=== PATIENT | male | born 1945 | race Caucasian/White ===

== ENCOUNTER 2017-03-05 09:07 | Day surgery (SDC) | payer MEDICARE, OTHER ==
[~2017-03-05 09:07] MED LIST: RINGERS SOLUTION,LACTATED 1,000 ML IV PRN
--- OUTSIDE RECORDS SUMMARY | 2017-03-05 09:14 | XMS REPORT | CCD ---
:1945 Author Name MOON MANDEL Address [address] [facility] Unavailable [place], [place] [id number] Care Team Providers Name Role Phone DASIA SCHNEIDER Attending Physician Unavailable Vital Signs Vital Sign Value Unit Date/Time Recent/Initial? Weight Measured 212 lbs 05/21/2016 08:49 Initial VS Height 70 in 05/21/2016 08:49 Initial VS BMI (Body Mass Index) 30.42 kg/m^2 05/21/2016 08:49 Initial VS BSA (Body Surface Area) 2.18 m^2 05/21/2016 08:49 Initial VS Allergies Allergy Code Allergy Type Reaction Status DILAUDID 054828 Drug allergy RASH Active Procedures Procedure Code Procedure Type Date Replacement of Left Lens with Synthetic Substitute, [id number] ICD-10 PCS 05/21 Percutaneous Approach History of Immunizations Unknown or Not Available. Problems Unknown or Not Available. Results Unknown or Not Available. Active Medications Unknown or Not Available. Medications Administered During Visit Unknown or Not Available. Encounters Encounter Diagnosis Diagnosis Code Start Date Age-related nuclear cataract, bilateral H2513 05/21/2016 Social History Smoking Status Code Start Date End Date Unknown if ever smoked [id number] Patient Decision Aids Unknown or Not Available. Discharge Instructions You were admitted to [facility] on 05/21/2016 08:15 with a principal diagnosis of Age-related nuclear cataract, bilateral You had the following procedures done:Replacement of Left Lens with Synthetic Substitute, Percutaneous Approach You were discharged from [facility] on 05/21/2016 11:00 Should you have any questions prior to discharge, please contact a member of your healthcare team. If you have left the hospital and have any questions, please contact your primary care physician. Chief Complaint and Reason For Visit Unknown or Not Available. Function Status Unknown or Not Available. Plan of Care Unknown or Not Available. Referral/Transition of Care Unknown or Not Available.
--- OUTSIDE RECORDS SUMMARY | 2017-03-05 09:14 | XMS REPORT | CCD ---
:1945 Author Name MOON MANDLE Address [address] [facility] Unavailable [place], [place] [id number] Care Team Providers Name Role Phone DASIA SCHNEIDER Attending Physician Unavailable Vital Signs Vital Sign Value Unit Date/Time Recent/Initial? Weight Measured 211.63 lbs 05/21/2016 14:37 Initial VS Height 70 in 05/21/2016 14:37 Initial VS BMI (Body Mass Index) 30.37 kg/m^2 05/21/2016 14:37 Initial VS BSA (Body Surface Area) 2.18 m^2 05/21/2016 14:37 Initial VS Allergies Allergy Code Allergy Type Reaction Status DILAUDID 380148 Drug allergy RASH Active Procedures Procedure Code Procedure Type Date Replacement of Right Lens with Synthetic [id number] ICD-10 PCS 05/28/2016 Substitute, Percutaneous Approach History of Immunizations Unknown or Not Available. Problems Unknown or Not Available. Results Unknown or Not Available. Active Medications Unknown or Not Available. Medications Administered During Visit Unknown or Not Available. Encounters Encounter Diagnosis Diagnosis Code Start Date Age-related nuclear cataract, right eye H2511 05/28/2016 Social History Smoking Status Code Start Date End Date Never smoker [id number] Patient Decision Aids Unknown or Not Available. Discharge Instructions You were admitted to [facility] on 05/28/2016 07:04 with a principal diagnosis of Age-related nuclear cataract, right eye You had the following procedures done:Replacement of Right Lens with Synthetic Substitute, Percutaneous Approach You were discharged from [facility] on 05/28/2016 10:07 Should you have any questions prior to [...]
--- OUTSIDE RECORDS SUMMARY | 2017-03-05 09:14 | XMS REPORT | Continuity of Care Document ---
:1945 Author Organization [facility] ([facility]) Address [address] [place] [address] Phone [phone] Care Team Providers Name Role Phone Prateek Lewis Primary Care Provider [phone] Source Comments This disclosure is being made pursuant to the Care Everywhere program, applicable federal and state laws, and may not contain all informaitonavailable regarding this patient.[facility] ([facility]) Active Allergies and Adverse Reactions Allergen Noted Date Severity Reactions Comments Hydromorphone (Bulk) 01/08/2011 Rash Current Medications Prescription Sig. Disp. Refills Start Date End Date Status lisinopril (PRINIVIL) 10 Take 10 mg by mouth Active mg tablet daily. omeprazole (PRILOSEC) 40 Take 40 mg by mouth Active mg capsule 2 times daily. Multivitamin Cap Take by mouth. Active ascorbic acid (ASCORBIC Take 1,000 mg by Active ACID) 500 mg tablet mouth daily. atorvastatin PO Take 0.5 tablets by Active mouth daily. 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 Weight 95.6 kg (210 lb 12.2 oz) 07/04/2016 8:37 AM CDT Body Mass Index 32.05 07/04/2016 8:37 AM CDT Oxygen Saturation 97% 12/29/2014 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 Plan of Care Date Type Specialty Providers Description 07/03/2017 Appointment Radiology Subj: Appointment Rescheduled 07/03/2017 Appointment Srg Oncology Lyle Hendricks MD Subj: Appointment [address] [facility] [place] [address] [phone] (Fax) 07/03/2017 Appointment Med Hematology and Lyle Hendricks MD [address] [place] [address] [phone] (Fax) Subj: Appointment Oncology Yue Kraft MD [address] [place] [address] [phone] (Fax) Rescheduled Health Maintenance Due Date Last Done Comments Hepatitis B Vaccine (1 of 3 1945 - Primary Series) Tdap Vaccine 1955 Lipid Disorder Screening 1962 Td Vaccine 1962 Colonoscopy 1994 Prostate Cancer Screening 1994 Zoster Vaccine 2004 Pneumococcal Vaccine (1 of 2009 2 - PCV13) Influenza Vaccine: Seasonal Addressed 10/01/2016 (Completed Overridden with the outside this hospital intention of not or clinic), 08/02/2015 completing the topic (Previously completed) Results from Last 3 Months Not on file
[2017-03-05] MEDS ORDERED: RINGERS SOLUTION,LACTATED 1,000 ML IV ONE (10:26)
[2017-03-05] MEDS ORDERED: RINGERS SOLUTION,LACTATED 1,000 ML IV PRN (11:27)
[2017-03-05 12:25] VITALS: BP 146/84
--- NOTE | 2017-03-05 12:52 | OR ---
Operative Report - Dictated Report Narrative: OPERATIVE REPORT DATE OF OPERATION: 03/05/2017 PREOPERATIVE DIAGNOSIS: No recent dedicated colon studies POSTOPERATIVE DIAGNOSIS: Mild diverticulosis OPERATION: Colonoscopy SURGEON: Yolanda Ortega MD ANESTHESIA: MICHA Shook CRNA INDICATIONS FOR PROCEDURE: The patient is a 71-year-old male who presents self referred for colon surveillance. 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 There is no family history of colon cancer. He is currently asymptomatic FINDINGS: Tortuous colon with scattered sigmoid diverticula otherwise normal exam to the cecum. NARRATIVE OF PROCEDURE: The patient was identified in the holding area, and prior to the administration of anesthetic, a multidisciplinary timeout was observed. With the patient in the left lateral position and after the administration of intravenous sedation, the perineum was inspected. There was no evidence of pilonidal disease or skin breakdown. The external appearance of the anus was normal. Sphincter tone was good. The flexible fiberoptic colonoscope was inserted into the rectum which was insufflated with air. The rectal mucosa and submucosal vascular pattern appeared normal, the prep was seen to be complete. The scope was advanced through the sigmoid colon, which contained several small amount impacted noninflamed diverticular openings. The scope was advanced up the descending colon, and around the splenic flexure where the triangular haustral architecture of the transverse colon was seen. The scope was advanced across the transverse colon, around the hepatic flexure to the cecum, where the confluence of tenia and the ileocecal valve were identified. Position was additionally confirmed by external manual compression and transillumination. The mucosa at this level appeared normal. The scope was then slowly withdrawn in a circular fashion so that all aspects of colonic mucosa were inspected. The colon was very tortuous in nature requiring the entire 160 cm of scope, standard reduction maneuvers, and gentle external manual compression on the abdomen to reach the cecum. The haustral architecture appeared well preserved throughout with no evidence of external compression. The mucosa and submucosal vascular pattern appeared normal, specifically there was no gross evidence to suggest colitis or inflammatory bowel disease and no AV malformations were seen. The diverticulosis was mild in degree and confined primarily to the sigmoid colon. No polyps were encountered. The scope was gradually withdrawn to the level of the rectum. As much insufflated air as possible was removed. The scope was withdrawn from the patient and the procedure terminated. The patient tolerated the anesthetic and procedure well without complication and was transferred back to the ambulatory surgery area awake and in stable condition. The patient remained stable throughout a period of postoperative observation. He denied abdominal discomfort, was able to tolerate by mouth intake, and was up without assistance. I shared the operative findings with the patient and he was given copies of the photographs which appear in the medical record. He was discharged home with instructions not to engage in hazardous activity today, but may resume normal activity tomorrow, and advance diet as tolerated. He is to continue those medications as listed in the history and physical exam. A pamphlet on diverticular disease was reviewed with him and given to him and a trial of Benefiber or equivalent suggested. RECOMMENDATION: Colon surveillance in 10 years depending upon findings and symptoms Reviewed and electronically signed
== END 2017-03-05 09:08 | disposition home or self-care (01) ==
LOC: AMB 09:07
PROVIDERS: ATTEND Surgery
PROC: 0DJD8ZZ Inspection of Lower Intestinal Tract, Via Natural or Artificial Opening Endoscopic (ICD-10-PCS; principal; 2017-03-05 10:45)
DX: Z12.11 Encounter for screening for malignant neoplasm of colon (principal); K57.30 Diverticulosis of large intestine without perforation or abscess without bleeding; I10 Essential (primary) hypertension; D64.9 Anemia, unspecified; K21.9 Gastro-esophageal reflux disease without esophagitis; Z87.891 Personal history of nicotine dependence; Z68.30 Body mass index [BMI] 30.0-30.9, adult; Z85.038 Personal history of other malignant neoplasm of large intestine

== ENCOUNTER 2017-07-18 08:28 | Emergency (ER) | payer MEDICARE, OTHER ==
[2017-07-18 08:38] VITALS: BP 169/104
--- NOTE | 2017-07-18 09:57 | ERNOTE ---
Integumentary HPI - General Presenting Symptoms: rash Time Seen by Provider: 07/18/17 09:44 Source: patient Exam Limitations: no limitations - Immun/Allergies/Home Medications Allergies/Adverse Reactions: Allergies Allergy/AdvReac Type Severity Reaction Status Date / Time hydromorphone HCl AdvReac Mild REDNESS, Verified 07/18/17 08:38 [From Dilaudid] RASH Home Medications: HOME MEDICATIONS Ascorbic Acid [Vitamin C] 1,000 mg PO DAILY 03/27/14 [Last Taken Unknown] Lisinopril 10 mg PO DAILY 03/27/14 [Last Taken Unknown] Omeprazole 20 mg PO DAILY 03/27/14 [Last Taken Unknown] Atorvastatin Calcium [Lipitor] 20 mg PO HS 02/26/17 [Last Taken Unknown] Multivitamins [Multivitamin Sahra] 1 cap PO DAILY 02/26/17 [Last Taken Unknown] Methylprednisolone [Medrol Dosepak] 4 mg PO DAILY #1 tab.ds.pk 07/18/17 [Last Taken Unknown] - History of Present Illness Narrative: Patient noticed a rash on his left arm last night and and area on his left neck this morning. 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 , has had trouble with poison kae in the past, that usually turns into a weeping rash that was successfully treated with a medrol dose pack in the past, denies any other symptoms Review of Systems - Review of Systems Constitutional: Absent: recent illness, fever ENT: Absent: nose congestion, sore throat Respiratory: Absent: shortness of breath, cough Cardiology: Absent: chest pain Gastrointestinal/Abdominal: Absent: nausea, vomiting, abdominal pain Genitourinary: Present: no symptoms reported Skin: Present: See HPI Neurological: Absent: headache, weakness, numbness - Patient's Past Medical History Patient History - Medical: Anemia, GERD, Other Patient History - Cardiac/Respiratory: Hypertension Patient History - Cancer: Chemotherapy history, Radiation Therapy, Surgical Treatment, Other Patient History - Surgical Procedures: Cataracts, Colonoscopy, EGD Patient History - Other: Immunosuppresive Tx >3mo - Family History Father Family History - Medical: , No pertinent hx Family History - Cardiac/Respiratory: No pertinent hx Family History - Cancer: Brain Mother Family History - Medical: , No pertinent hx Family History - Cardiac/Respiratory: COPD Family History - Cancer: Colon Brother Family History - Medical: , No pertinent hx Family History - Cardiac/Respiratory: No pertinent hx Family History - Cancer: Lymphoma - Social History Living Situations: spouse Abuse History: No History of abuse Psych History: No pertinent hx Smoking Status: Never smoker Have you smoked in the past 12 months: No Alcohol Use: heavy Drug Use: none Physical Exam - Physical Exam General Appearance: Present: wd/wn, alert, no apparent distress Respiratory: Present: no respiratory distress, normal breath sounds, no accessory muscle use, lungs clear Cardiovascular/Chest: Present: regular rate, rhythm, no murmur Neurological Exam: Present: alert, oriented, normal mood/affect Skin Exam: Present: normal color, warm/dry, skin rash - hive like rash on left arm and neck, no vesicles ED Progress - Vital Signs Patient's Vital Signs:: I have reviewed the patient's vital signs. Vital Signs: Vital Signs 07/18/17 08:35 Temperature 37.1 C Pulse Rate 74 Respiratory 12 Rate Blood Pressure 169/104 O2 Sat by Pulse 97 Oximetry - Progress/Reassessment Chief Complaint: Rash Departure Clinical Impression: Dermatitis, contact, from chemicals - Departure Disposition: Home self-care Condition: Good Instructions: Poison Kae Dermatitis, [id number] Referrals: Prateek Lewis DO [Primary Care Provider] - Prescriptions: Methylprednisolone [Medrol Dosepak] 4 mg PO DAILY #1 tab.ds.pk
== END 2017-07-18 09:58 | disposition home or self-care (01) ==
LOC: ER 08:28
DX: L25.5 Unspecified contact dermatitis due to plants, except food (principal); K21.9 Gastro-esophageal reflux disease without esophagitis; I10 Essential (primary) hypertension

== ENCOUNTER 2017-07-27 08:03 | Emergency (ER) | payer MEDICARE, OTHER ==
[2017-07-27 08:12] VITALS: BP 148/95
[2017-07-27] MEDS ORDERED: METHYLPREDNISOLONE ACETATE 80 MG/ML VIAL ONE (08:34)
[2017-07-27] MEDS ORDERED: METHYLPREDNISOLONE ACETATE 80 MG/ML VIAL IM ONE (08:34)
--- NOTE | 2017-07-27 08:40 | ERNOTE ---
Integumentary HPI - General Presenting Symptoms: rash Time Seen by Provider: 07/27/17 08:28 Source: patient Exam Limitations: no limitations - Immun/Allergies/Home Medications Immunizations: IMMUNIZATION HX Immunizations Up to Date Yes Allergies/Adverse Reactions: Allergies Allergy/AdvReac Type Severity Reaction Status Date / Time hydromorphone HCl AdvReac Mild REDNESS, Verified 07/18/17 08:38 [From Dilaudid] RASH Home Medications: HOME MEDICATIONS Ascorbic Acid [Vitamin C] 1,000 mg PO DAILY 03/27/14 [Last Taken Unknown] Lisinopril 10 mg PO DAILY 03/27/14 [Last Taken Unknown] Omeprazole 20 mg PO DAILY 03/27/14 [Last Taken Unknown] Atorvastatin Calcium [Lipitor] 20 mg PO HS 02/26/17 [Last Taken Unknown] Multivitamins [Multivitamin Sahra] 1 cap PO DAILY 02/26/17 [Last Taken Unknown] Methylprednisolone [Medrol Dosepak] 4 mg PO DAILY #1 tab.ds.pk 07/18/17 [Last Taken Unknown] Famotidine [Pepcid] 20 mg PO BID #10 tablet 07/27/17 [Last Taken Unknown] hydrOXYzine PAMOATE [Vistaril] 50 mg PO Q4H PRN #30 cap 07/27/17 [Last Taken Unknown] predniSONE [Deltasone] 20 mg PO BID #10 tablet 07/27/17 [Last Taken Unknown] - History of Present Illness Narrative: Patient states she was cutting down what he thinks is likely poison oak or possibly poison frank and incurred a rash. An attempted treatment was undertaken and as the steroids wore off the rash returned. Location: Reports: generalized Quality: Reports: itching Severity: moderate Exposure: Reports: poison frank/oak Modifying Factors - (Improves): Reports: prednisone Modifying Factors - (Worsens): Reports: nothing Associated Symptoms: Reports: rash Prior Treatment: Reports: recently seen Review of Systems - Review of Systems Constitutional: Present: See HPI EYE: Present: no symptoms reported ENT: Present: no symptoms reported Respiratory: Present: no symptoms reported Cardiology: Present: no symptoms reported Gastrointestinal/Abdominal: Present: no symptoms reported Genitourinary: Present: no symptoms reported Musculoskeletal: Present: no symptoms reported Skin: Present: rash Neurological: Present: no symptoms reported Endocrine: Present: no symptoms reported Hematologic/Lymphatic: Present: no symptoms reported Psych: Present: no symptoms reported - Patient's Past Medical History Patient History - Medical: Anemia, GERD, Other Patient History - Cardiac/Respiratory: Hypertension Patient History - Cancer: Chemotherapy history, Radiation Therapy, Surgical Treatment, Other Patient History - Surgical Procedures: Cataracts, Colonoscopy, EGD Patient History - Other: Immunosuppresive Tx >3mo - Family History Father Family History - Medical: , No pertinent hx Family History - Cardiac/Respiratory: No pertinent hx Family History - Cancer: Brain Mother Family History - Medical: , No pertinent hx Family History - Cardiac/Respiratory: COPD Family History - Cancer: Colon Brother Family History - Medical: , No pertinent hx Family History - Cardiac/Respiratory: No pertinent hx Family History - Cancer: Lymphoma - Social History Living Situations: spouse Abuse History: No History of abuse Psych History: No pertinent hx Smoking Status: Never smoker Alcohol Use: heavy Drug Use: none - Immunizations Immunizations Up to Date: Yes Physical Exam - Physical Exam General Appearance: Present: wd/wn, alert, moderate distress Head Exam: Present: normal inspection Eye Exam: Normal inspection: bilateral, PERRL: bilateral Ears, Nose, Throat: Present: normal ENT inspection, H, normal pharynx Neck: Present: normal inspection, nontender Respiratory: Present: no respiratory distress, normal breath sounds, no accessory muscle use, chest nontender, lungs clear Cardiovascular/Chest: Present: regular rate, rhythm, no murmur, normal peripheral pulses Gastrointestinal/Abdominal: Present: normal bowel sounds, nontender, nondistended, soft, no organomegaly Rectal Exam: Present: deferred Back Exam: Present: normal inspection, normal range of motion Extremity Exam: Present: normal inspection, non-tender, no edema, normal range of motion Neurological Exam: Present: alert, oriented, normal mood/affect Skin Exam: Present: warm/dry, other - urticarial rash on the arms, legs and trunk Lymphatic Exam: Present: no adenopathy ED Progress - Vital Signs Patient's Vital Signs:: I have reviewed the patient's vital signs. Vital Signs: Vital Signs 07/27/17 08:07 Temperature 36.6 C Pulse Rate 72 Respiratory 148 H Rate Blood Pressure 148/95 O2 Sat by Pulse 98 Oximetry - Progress/Reassessment Chief Complaint: Rash Plan - Plan Plan: I discussed with the patient the likelihood of his being reinoculate it in some form by some of the resin that had gotten on his clothes, tools or possibly vehicle. He was instructed to wash everything they could've come in contact with after his exposure with soap and water, rubber gloves while he does this and then throw the globes away. Departure Clinical Impression: Dermatitis, contact, from chemicals - Departure Disposition: Home self-care Condition: Good Instructions: Hives, [id number] Referrals: Prateek Lewis DO [Primary Care Provider] - Prescriptions: Famotidine [Pepcid] 20 mg PO BID #10 tablet hydrOXYzine PAMOATE [Vistaril] 50 mg PO Q4H PRN #30 cap PRN Reason: Itching predniSONE [Deltasone] 20 mg PO BID #10 tablet
== END 2017-07-27 08:40 | disposition home or self-care (01) ==
LOC: ER 08:03
DX: L25.3 Unspecified contact dermatitis due to other chemical products (principal); K21.9 Gastro-esophageal reflux disease without esophagitis; I10 Essential (primary) hypertension